=== PATIENT | male | born 1970 | race African-American/Black ===

== ENCOUNTER 2022-06-26 10:52 | Emergency (ER) | payer MEDICAID ==
[~2022-06-26] VITALS: Ht 172.7 cm; Wt 84.0 kg
[2022-06-26 11:24] VITALS: BP 117/72
== END 2022-06-26 14:04 | disposition home or self-care (01) ==
LOC: ER 10:52
DX: J06.9 Acute upper respiratory infection, unspecified (principal); Z20.822 Contact with and (suspected) exposure to COVID-19
CPT/HCPCS: 87426; 99283; C9803

== ENCOUNTER 2023-11-21 10:41 | Emergency (ER) | payer BC, OTHER ==
[~2023-11-21] VITALS: Ht 160 cm; Wt 90.7 kg
[2023-11-21 10:48] VITALS: TEMP 97.6
[2023-11-21 13:44] LABS: BASOPHILS % 0.2 % (0.0-2.0); EOSINOPHILS % 0.8 % (0.0-5.0); HEMATOCRIT. 41.5 % (42.0-52.0); HEMOGLOBIN. 14.1 g/dL (14.0-18.0); MEAN CORPUSCULAR HEMOGLOBIN 29.9 pg (28.0-32.0); MEAN CORPUSCULAR HGB CONC 33.9 g/dL (31.0-37.0); MEAN PLATELET VOLUME 8.7 fl (7.4-10.4); MONOCYTES % 10.2 % (2.0-8.0); NEUTROPHILS % 57.8 % (40.0-76.0); PLATELET 231 x1000/uL (130-400); RED BLOOD CELL COUNT 4.72 mill/uL (4.7-6.1); RED CELL DISTRIBUTION WIDTH 14.7 % (11.6-14.6); WHITE BLOOD COUNT 6.5 x1000/uL (4.5-11.0)
[2023-11-21 14:23] LABS: ALANINE AMINOTRANSFERASE 17 IU/L (10-49); ALBUMIN 4.8 g/dL (3.2-4.8); ASPARTATE AMINOTRANSFERASE 23 IU/L (<34); BILIRUBIN TOTAL 0.5 mg/dL (0.1-1.0); CALCIUM 9.6 mg/dL (8.7-10.4); CARBON DIOXIDE 27 mEq/L (21-32); CHLORIDE 106 mEq/L (98-107); CREATININE 1.1 mg/dL (0.6-1.3); GLUCOSE 95 mg/dL (70-105); POTASSIUM 4.4 mEq/L (3.5-5.1); PROTEIN TOTAL 8.3 g/dL (6.0-8.3); SODIUM 136 mEq/L (136-145); UREA NITROGEN BLOOD 12 mg/dL (9-23)
[2023-11-21] MEDS ORDERED: SULF1TAB48 MT (14:32)
[2023-11-21] MEDS ORDERED: CEPH500C2 MT (14:32)
[2023-11-21] MEDS ORDERED: NIZOS TP (14:32)
[2023-11-21] MEDS ORDERED: TERB250T88 MT (14:32)
[2023-11-21 15:33] VITALS: BP 138/86; PULSE 79; RESP 16
== END 2023-11-21 15:34 | disposition home or self-care (01) ==
LOC: ER 11:27
DX: R21 Rash and other nonspecific skin eruption (principal); Z90.49 Acquired absence of other specified parts of digestive tract
CPT/HCPCS: 36415; 80053; 85025; 99283

== ENCOUNTER 2024-01-29 16:44 | Emergency (ER) | payer BC, OTHER ==
[~2024-01-29] VITALS: Ht 162.6 cm; Wt 83.9 kg
[~2024-01-29 16:44] MED LIST: CEPH500C2 MT; NIZOS TP; SULF1TAB48 MT; TERB250T88 MT
[2024-01-29 16:50] VITALS: BP 127/80; PULSE 85; RESP 16; TEMP 98.2; O2SAT 99
[2024-01-29] MEDS ORDERED: SULF1TAB48 MT (19:10)
[2024-01-29] MEDS ORDERED: IBUP-1525 MT (19:10)
[2024-01-29] MEDS ORDERED: MUPI15CR11 TP (19:10)
[2024-01-29] MEDS ORDERED: CEPH500T MT (19:10)
== END 2024-01-29 19:31 | disposition home or self-care (01) ==
LOC: ER 16:44
DX: R21 Rash and other nonspecific skin eruption (principal); Z79.899 Other long term (current) drug therapy
CPT/HCPCS: 99281; 99283

== ENCOUNTER 2025-03-03 21:46 | Inpatient (IN) | payer BC, OTHER ==
[~2025-03-03] VITALS: Ht 167.6 cm; Wt 90.7 kg
[~2025-03-03 21:46] MED LIST changes: +CEPH500T MT; +IBUP-1525 MT; +MUPI15CR11 TP
[2025-03-03 23:41] LABS: BASOPHILS % 0.6 % (0.0-2.0); CHLORIDE 107 mEq/L (98-107); HEMATOCRIT. 38.6 % (42.0-52.0); HEMOGLOBIN. 12.9 g/dL (14.0-18.0); LYMPHOCYTES % 28.1 % (20.0-50.0); MEAN CORPUSCULAR HEMOGLOBIN 28.7 pg (28.0-32.0); MEAN CORPUSCULAR HGB CONC 33.4 g/dL (31.0-37.0); MEAN CORPUSCULAR VOLUME 85.9 fL (80.0-94.0); MEAN PLATELET VOLUME 8.6 fl (7.4-10.4); MONOCYTES % 10.8 % (2.0-8.0); NEUTROPHILS % 59.5 % (40.0-76.0); PLATELET 243 x1000/uL (130-400); POTASSIUM 4.1 mEq/L (3.5-5.1); RED CELL DISTRIBUTION WIDTH 14.2 % (11.6-14.6); SODIUM 139 mEq/L (136-145); WHITE BLOOD COUNT 6.6 x1000/uL (4.5-11.0)
[2025-03-03 23:42] LABS: CALCIUM 9.4 mg/dL (8.7-10.4); CARBON DIOXIDE 25 mEq/L (21-32)
[2025-03-03 23:47] LABS: CREATININE 1.2 mg/dL (0.6-1.3); GLUCOSE 153 mg/dL (70-105); UREA NITROGEN BLOOD 17 mg/dL (9-23)
[2025-03-03 23:49] LABS: ALANINE AMINOTRANSFERASE 22 IU/L (10-49); ALBUMIN 4.6 g/dL (3.2-4.8); ASPARTATE AMINOTRANSFERASE 23 IU/L (<34); BILIRUBIN DIRECT < 0.1 mg/dL (<=3.0); BILIRUBIN TOTAL 0.3 mg/dL (0.1-1.0)
[2025-03-03 23:50] LABS: PROTEIN TOTAL 7.7 g/dL (6.0-8.3)
[2025-03-04 00:04] LABS: CLARITY URINE TURBID (CLEAR); COLOR URINE RED (YELLOW); GLUCOSE URINE NEGATIVE (NEGATIVE); KETONES URINE NEGATIVE (NEGATIVE); LEUKOCYTE ESTERASE URINE 1+ (NEGATIVE); NITRITE URINE NEGATIVE (NEGATIVE); OCCULT BLOOD URINE 3+ (NEGATIVE); PH URINE 6.5 (4.5-8.0); PROTEIN URINE 3+ (NEGATIVE); SPECIFIC GRAVITY URINE 1.022 (1.005-1.030); UROBILINOGEN URINE 0.2 E.U./dL (0.2-1.0)
[2025-03-04 00:05] LABS: PROTHROMBIN TIME 10.4 sec (9.6-11.0)
[2025-03-04 00:40] LABS: SQUAMOUS EPITHELIAL CELL URINE NONE SEEN /lpf (RARE/1+)
[2025-03-04 00:41] LABS: RBC URINE TNTC /hpf (0-2); WBC URINE 0-2 /hpf (0-2)
[2025-03-04 00:43] LABS: BACTERIA URINE 2+
[2025-03-04] MEDS: CEFTRIAXONE 2GM/50ML 50 ML IV ONE (01:24)
[2025-03-04 04:00] VITALS: BP 105/64; PULSE 63; RESP 20; TEMP 36.4; O2SAT 100
[2025-03-04] MEDS ORDERED: ACETAMINOPHEN 325MG TABLET PO PRN (04:00)
[2025-03-04] MEDS ORDERED: ONDANSETRON HCL 4MG/2ML INJ IV PRN (04:00)
[2025-03-04] MEDS ORDERED: HYDROCODONE/ACETAMINOPHEN 5/325MG TABLET PO PRN (04:00)
[2025-03-04 04:28] VITALS: BP 105/64; PULSE 61; RESP 18; TEMP 36.4
[2025-03-04] MEDS ORDERED: NALOXONE HCL 0.4MG/ML VIAL IV PRN (04:30)
[2025-03-04] MEDS: SODIUM CHLORIDE 0.9% 1,000 ML IV SCH (06:43)
[2025-03-04 08:00] VITALS: BP 118/79; PULSE 70; RESP 18; TEMP 36.6; O2SAT 100
[2025-03-04 10:07] LABS: HEMOGLOBIN 13.1 g/dL (14.0-18.0); MEAN CORPUSCULAR HGB CONC 33.6 g/dL (31.0-37.0); MEAN CORPUSCULAR VOLUME 86.4 fL (80.0-94.0); PLATELET 236 x1000/uL (130-400); RED BLOOD CELL COUNT 4.51 mill/uL (4.7-6.1); RED CELL DISTRIBUTION WIDTH 14.5 % (11.6-14.6); WHITE BLOOD COUNT 5.9 x1000/uL (4.5-11.0)
[2025-03-04 10:16] LABS: CHLORIDE 104 mEq/L (98-107); POTASSIUM 4.1 mEq/L (3.5-5.1); SODIUM 137 mEq/L (136-145)
[2025-03-04 10:17] LABS: CARBON DIOXIDE 24 mEq/L (21-32)
[2025-03-04 10:18] LABS: CALCIUM 9.1 mg/dL (8.7-10.4)
[2025-03-04 10:22] LABS: GLUCOSE 127 mg/dL (70-105); UREA NITROGEN BLOOD 13 mg/dL (9-23)
[2025-03-04 12:00] VITALS: BP 114/63; PULSE 67; RESP 20; TEMP 36.6; O2SAT 100
[2025-03-04 16:00] VITALS: BP 111/76; PULSE 64; RESP 18; TEMP 36.6; O2SAT 100
[2025-03-04] MEDS: TAMSULOSIN HCL 0.4MG SR CAPSULE PO SCH (16:40)
[2025-03-04 20:00] VITALS: BP 115/74; PULSE 68; RESP 20; TEMP 36.6; O2SAT 100
[2025-03-04] MEDS ORDERED: CEFTRIAXONE 1GM/50ML 50 ML IV SCH (21:00)
[2025-03-05] VITALS: BP 111/68; PULSE 70; RESP 20; TEMP 36.6; O2SAT 100
[2025-03-05] MEDS: CEFTRIAXONE 1GM/50ML 50 ML IV SCH (01:15)
[2025-03-05 04:00] VITALS: BP 118/72; PULSE 64; RESP 18; TEMP 36.7; O2SAT 100
[2025-03-05 08:00] VITALS: BP 108/70; PULSE 63; RESP 19; TEMP 36.3; O2SAT 99
[2025-03-05] MEDS ORDERED: TAMS-54 MT (09:07)
[2025-03-05] MEDS ORDERED: LEVO-65 MT (09:07)
[2025-03-05 10:46] VITALS: BP 108/70; PULSE 63; TEMP 97.3; O2SAT 99
[2025-03-05 12:00] VITALS: BP 104/55; PULSE 67; RESP 19; TEMP 36.2; O2SAT 99
== END 2025-03-05 12:42 | disposition home or self-care (01) | DRG 690 ==
LOC: ER 21:46 → EDBEDREQ 23:48 → 6EST 03-04 00:47 → EDBEDREQ 03-04 00:56 → ENRESERV 03-04 01:49
PROVIDERS: ADMIT Internal Medicine; ATTEND Internal Medicine
DX: N39.0 Urinary tract infection, site not specified (principal); N40.0 Benign prostatic hyperplasia without lower urinary tract symptoms; Z79.899 Other long term (current) drug therapy
CPT/HCPCS: 36415; 74176; 76770; 80048; 80076; 81003; 84153; 85025; 85027; 86850; 86900; 99285; J0696; J7030

== ENCOUNTER 2025-09-26 20:25 | Emergency (ER) | payer BC ==
[~2025-09-26] VITALS: Ht 165.1 cm; Wt 90.7 kg
[~2025-09-26 20:25] MED LIST changes: -CEPH500C2 MT; -CEPH500T MT; +LEVO-65 MT; -SULF1TAB48 MT; +TAMS-54 MT
[2025-09-26 21:30] VITALS: TEMP 36.8; O2SAT 99
[2025-09-26 22:53] LABS: CLARITY URINE CLOUDY (CLEAR); COLOR URINE ORANGE (YELLOW); GLUCOSE URINE 1+ (NEGATIVE); KETONES URINE NEGATIVE (NEGATIVE); LEUKOCYTE ESTERASE URINE 1+ (NEGATIVE); NITRITE URINE NEGATIVE (NEGATIVE); OCCULT BLOOD URINE 3+ (NEGATIVE); PH URINE 5.5 (4.5-8.0); PROTEIN URINE 2+ (NEGATIVE); SPECIFIC GRAVITY URINE 1.022 (1.005-1.030); UROBILINOGEN URINE 0.2 E.U./dL (0.2-1.0)
[2025-09-26 22:58] LABS: BACTERIA URINE 1+; RBC URINE 15-25 /hpf (0-2); SQUAMOUS EPITHELIAL CELL URINE 1+ /lpf (RARE/1+)
[2025-09-26] MEDS ORDERED: CEPH500C2 MT (23:24)
[2025-09-26 23:47] VITALS: BP 117/77; PULSE 78; RESP 16; O2SAT 100
== END 2025-09-26 23:48 | disposition home or self-care (01) ==
LOC: ER 20:25
DX: R31.9 Hematuria, unspecified (principal)
CPT/HCPCS: 81003; 99283